=== PATIENT | male | born 1965 | race Caucasian/White ===

== ENCOUNTER 2016-09-25 08:00 | Outpatient (CLI) | payer BC, OTHER | END 2016-09-25 08:01 | disposition home or self-care (01) | LOC: LAB.R 08:00 | PROVIDERS: ATTEND Physician Assistant Medical | DX: J03.90 Acute tonsillitis, unspecified (principal) | CPT/HCPCS: 87070 ==

== ENCOUNTER 2018-06-22 09:27 | Outpatient (CLI) | payer BC ==
--- NOTE | 2018-06-22 10:11 | XRAY Report ---
Reason: KNEE PAIN,CHRONIC Procedure Date: 06/22/2018 Accession Number: [id number] / [id number] Procedure: [facility] - Knee 2 View BILAT CPT Code: FULL RESULT: EXAMS: 1. Right Knee Radiography 2. Left Knee Radiography EXAM DATE:06/22/2018 09:42 AM. CLINICAL HISTORY:KNEE Pain, chronic. COMPARISON: None. TECHNIQUE: 3 views each. FINDINGS: Right Knee: Bones: Normal. No fractures or bone lesions. Joints: Normal. No effusion. No subluxations. Soft Tissues: Normal. No soft tissue swelling. Left Knee: Bones: No acute abnormality. No evidence of fracture. Anterior tibial bone spurring at insertion site of the patellar tendon. No other bony abnormality. Joints: Normal. No effusion. No subluxations. Soft Tissues: Normal. No soft tissue swelling. IMPRESSION: 1. Radiographically normal right knee. 2. Evidence of chronic inferior left patellar tendinitis. Otherwise normal left knee. [facility]IA
== END 2018-06-22 09:28 | disposition home or self-care (01) ==
LOC: DI.WCP 09:27
PROVIDERS: ATTEND Physician Assistant
DX: M76.52 Patellar tendinitis, left knee (principal); M25.561 Pain in right knee
CPT/HCPCS: 73565

== ENCOUNTER 2020-03-06 16:41 | Outpatient (CLI) | payer OTHER ==
--- NOTE | 2020-03-06 16:58 | XRAY Report ---
PROCEDURE: Shoulder 3 View RT INDICATIONS: R SHOULDER JOINT PX TECHNIQUE: 3 views of the shoulder were acquired. COMPARISON: None. FINDINGS: Bones: No fractures or dislocations. No suspicious bony lesions. Visualized ribs appear intact. M ild periarticular osteophyte formation at the acromioclavicular and glenohumeral joints. Soft tissues: No suspicious soft tissue calcifications. IMPRESSION: Osteoarthritis. No acute fracture. No osseous lesion. If symptoms and/or clinical suspic ion for pathology continue, further assessment with repeat plain films, or advanced imaging (e.g., CT , MRI, or bone scan) is recommended for further assessment. Reviewed by: Tigist Kirby MD on 03/06/2020 4:57 PM PST Approved by: Tigist Kirby MD on 03/06/2020 4:57 PM PST Station ID: [id number]
== END 2020-03-06 23:59 | disposition home or self-care (01) ==
LOC: DI.N 16:41
PROVIDERS: ATTEND Family Medicine
DX: M19.011 Primary osteoarthritis, right shoulder (principal)

== ENCOUNTER 2021-08-05 08:00 | Outpatient (CLI) | payer OTHER ==
--- NOTE | 2021-08-06 08:57 | XRAY Report ---
PROCEDURE: Chest 2 View X-Ray INDICATIONS: COUGH TECHNIQUE: 2 view(s) of the chest. COMPARISON: 03/17/2018 FINDINGS: Surgical changes and devices: None. Lungs and pleura: No pleural effusions or pneumothorax. Lungs are clear. Mediastinum: Mediastinal contours are normal. Heart size is normal. Bones and chest wall: No suspicious bony abnormalities. Flowing osteophytes throughout the thoracic spine. Slight pectus excavatum deformity. Soft tissues appear unremarkable. IMPRESSION: No acute cardiopulmonary disease. Reviewed by: Maddie Harris MD on 08/06/2021 8:56 AM PDT Approved by: Maddie Harris MD on 08/06/2021 8:56 AM PDT Station ID: [id number]
== END 2021-08-05 23:59 | disposition home or self-care (01) ==
LOC: DI.N 08:00
PROVIDERS: ATTEND Physician Assistant Medical
DX: R05.9 Cough, unspecified (principal)